=== PATIENT | female | born 1955 | race Hispanic/Latino ===

== ENCOUNTER 2017-03-04 10:10 | Emergency (ER) | payer OTHER ==
[2017-03-04 10:44] VITALS: RESP 16; TEMP 98.6; O2SAT 100; BMI 27.8
[2017-03-04] MEDS ORDERED: Sodium Chloride 0.9% 500 ML IV STA (11:50)
[2017-03-04] MEDS ORDERED: Atrop/Hyosc/Scopal/PB Elixir (120 ml) PO STA (11:52)
[2017-03-04] MEDS ORDERED: Alum-Mag Hydrox-Simethicone Susp (30 mL) PO STA (11:52)
[2017-03-04 12:24] LABS: ADD MANUAL DIFF? NO
[2017-03-04 12:28] LABS: BASO # 0.04 K/mm3 (0.0-2.0); BASO % 0.6 % (0.0-3.0); EOS # 0.1 (0.0-0.7); EOS % 2.1 % (1.5-5.0); GRAN # 3.95 (1.4-6.5); GRAN % 63.7 % (50.0-68.0); HEMATOCRIT 44.7 % (36.0-48.0); LYMPH # 1.8 (1.2-3.4); LYMPH % 28.4 % (22.0-35.0); MEAN CELL VOLUME 85.6 fL (80.0-105.0); MEAN CORPUSCULAR HEMOGLOBIN 29.7 pg (25.0-35.0); MEAN CORPUSCULAR HGB CONC 34.7 g/dl (31.0-37.0); MEAN PLATELET VOLUME 9.2 fl (7.0-11.0); MONO # 0.3 (0.1-0.6); MONO % 5.2 % (1.0-6.0); PLATELET COUNT 238 10^3/uL (120.0-450.0); RED CELL DISTRIBUTION WIDTH 14.9 % (11.5-14.5); WHITE BLOOD COUNT 6.2 10^3/ul (4.5-11.0)
--- NOTE | 2017-03-04 12:29 | RAD ---
HISTORY: abd pain COMPARISON: 08/16/2016 FINDINGS: LUNGS: No active pulmonary disease. PLEURA: No significant pleural effusion identified, no pneumothorax apparent. CARDIOVASCULAR: Normal. OSSEOUS STRUCTURES: No significant abnormalities. VISUALIZED UPPER ABDOMEN: Normal. OTHER FINDINGS: None. IMPRESSION: No active disease.
[2017-03-04 12:38] LABS: INR 0.95 (0.93-1.08); PARTIAL THROMBOPLASTIN TIME 27.5 Seconds (23.7-30.8)
[2017-03-04 13:37] LABS: ALB/GLOB RATIO 1.4 (1.1-1.8); ALKALINE PHOSPHATASE 64 U/L (38-133); BLOOD UREA NITROGEN 13 mg/dL (7-21); CALCIUM 9.1 mg/dL (8.4-10.5); CARBON DIOXIDE 26 mmol/L (21-33); CHLORIDE 106 mmol/L (98-107); GFR AFRICAN-AMERICAN > 60; GLUCOSE,RANDOM 92 mg/dL (70-110); POTASSIUM 4.4 mmol/L (3.6-5.0); SODIUM 140 mmol/L (132-148); TOTAL PROTEIN 7.4 g/dL (5.8-8.3)
[2017-03-04 13:39] LABS: ALT/SGPT 41 U/L (7-56); AST/SGOT 22 U/L (15-39); LIPASE 58 U/L (23-300)
--- NOTE | 2017-03-04 13:39 | US ---
HISTORY: RUQ pain COMPARISON: Comparison is made to the previous study dated 08/16/2016 TECHNIQUE: Sonographic evaluation of the abdomen. FINDINGS: LIVER: Measures 15.1 x 13.4 x 12.1 cm. Normal echogenicity of the liver parenchyma. No mass. Central intrahepatic bile duct dilatation. GALLBLADDER: Unremarkable. No gallstones. COMMON BILE DUCT: Measures 10.8 mm. No stones. No dilatation. PANCREAS: Unremarkable as visualized. No mass. The main pancreatic duct the measures 2.3 millimeter RIGHT KIDNEY: Measures 9.3 x 5.6 x 5.6cm. Normal echogenicity. No calculus, mass, or hydronephrosis. LEFT KIDNEY: Measures 10.5 x 5.7 x 5.6cm. Normal echogenicity. No calculus, mass, or hydronephrosis. SPLEEN: Normal in size and contour. No mass. AORTA: No aneurysmal dilatation. IVC: Unremarkable. OTHER FINDINGS: None. IMPRESSION: Dilated common bile duct of uncertain etiology. If clinically warranted further assessment by MRCP may be obtained. No evidence of cholelithiasis or cholecystitis.
--- NOTE | 2017-03-04 13:54 | ED PDOC ---
Arrival/HPI - General Chief Complaint: ENT Problem Time Seen by Provider: 03/04/17 10:47 Historian: Patient - History of Present Illness Narrative History of Present Illness (Text): 03/04/17 13:50 Patient with past medical history of hiatal hernia and gastritis, is also a smoker, complaining of a burning sensation to the epigastric area radiating to the center of her chest and into her throat for the past 7 days, states that she 's been taking ranitidine with no improvement of her symptoms. States that she already discontinued taking coffee and spicy food intake, she is also decreased amount of cigarettes she smokes with no improvement of her symptoms. Patient adds that in July of last year she had an endoscopy and a colonoscopy which diagnosed a hiatal hernia and gastritis. States that she has not followed up with her primary care doctor regarding her following symptoms because currently she does not have one. Otherwise: (-) SOB, (-) nausea / vomiting, (-) diarrhea, (-) fever, (-) urinary symptoms, (-) melena, (-) hematochezia. Has history of prior abdominal surgery - appendectomy. Patient also reports 10 day history of facial pain associated with runny nose and cough, adds that the facial pain is worse when bending forward and looking down. Otherwise: (-) headache, (-) recent travel, (-) sick contacts. Past Medical History - Provider Review Nursing Documentation Reviewed: Yes - Cardiac Hx Cardiac Disorders: No - Pulmonary Hx Respiratory Disorders: No - Neurological Hx Neurological Disorder: No - HEENT Hx HEENT Disorder: Yes Hx Glaucoma: Yes - Renal Hx Renal Disorder: Yes Other/Comment: ca of the bladder - Endocrine/Metabolic Hx Endocrine Disorders: No - Hematological/Oncological Hx Blood Disorders: No - Integumentary Hx Dermatological Disorder: No - Musculoskeletal/Rheumatological Hx Musculoskeletal Disorders: No - Gastrointestinal Hx Gastrointestinal Disorders: Yes Hx Gastritis: Yes Hx Gastroesophageal Reflux: Yes - Genitourinary/Gynecological Hx Genitourinary Disorders: Yes Hx Bladder Cancer: Yes - Psychiatric Hx Psychophysiologic Disorder: No Hx Substance Use: No - Surgical History Hx Appendectomy: Yes Hx Tonsillectomy: Yes Other/Comment: bladder surgery - Suicidal Assessment Feels Threatened In Home Enviroment: No Family/Social History - Physician Review Nursing Documentation Reviewed: Yes Family/Social History: No Known Family HX Smoking Status: Light Smoker < 10 Cigarettes Daily Hx Alcohol Use: No Hx Substance Use: No Allergies/Home Meds Allergies/Adverse Reactions: Allergies Penicillins Allergy (Verified 03/04/17 10:44) ANAPHYLAXIS Home Medications: Home Meds Medication Instructions Recorded Confirmed Ranitidine HCl [Zantac] 150 mg PO BID 03/04/17 03/04/17 Review of Systems - Review of Systems Constitutional: Normal. absent: Fatigue, Weight Change, Fevers ENT: Normal, Sinus Congestion. absent: Hearing Changes, Tinnitus, Sore Throat Respiratory: Normal, Cough. absent: SOB, Sputum Cardiovascular: Normal, Chest Pain. absent: Palpitations, Edema Gastrointestinal: Normal, Abdominal Pain, Appetite Changes. absent: Stool Changes, Constipation Genitourinary Female: Normal. absent: Dysuria, Frequency, Hematuria Musculoskeletal: Normal. absent: Arthralgias, Back Pain, Neck Pain Skin: Normal. absent: Rash, Pruritis, Skin Lesions, Laceration Neurological: Normal. absent: Headache, Dizziness, Focal Weakness Physical Exam - Physical Exam Narrative Physical Exam (Text): 03/04/17 13:54 GENERAL APPEARANCE: Patient is awake, alert, oriented x 3, in no acute distress. EYES: (-) conjunctival pallor, (-) scleral icterus, (-) conjunctival hemorrhage. ENMT: Mucous membranes moist. TMs: (-) erythema. (+) Tenderness to the frontal and maxillary sinuses. Airway patent: (-) stridor. Pharynx: (-) erythema, (-) exudate. NECK: (-) tenderness, (-) stiffness, (-) meningismus, (-) lymphadenopathy. CHEST AND RESPIRATORY: (-) accessory muscle use. Lungs: (-) rales, (-) rhonchi, (-) wheezes, (-) rub; breath sounds equal bilaterally. HEART AND CARDIOVASCULAR: (-) irregularity; (-) murmur, (-) gallop. ABDOMEN AND GI: (-) distention. Bowel sounds active; (-) tenderness, (-) guarding, (-) rebound, (-) palpable masses, (-) CVA tenderness. EXTREMITIES: (-) deformity, (-) edema, (+) distal pulses. NEURO AND PSYCH: Mental status as above; (-) focal findings. Vital Signs Temp Pulse Resp BP Pulse Ox 03/04/17 10:44 98.6 F 94 H 16 154/97 H 100 Medical Decision Making ED Course and Treatment: 03/04/17 13:55 62-year-old female presents with a history of hiatal hernia and gastritis, is also a smoker, complains of epigastric pain to consider GERD, as well as facial pain which is likely sinusitis. Plan: -- Labs -- IV fluids -- Urinalysis -- EKG -- CXR -- Pepcid and GI cocktail -- Reassess and disposition -- US ABD 03/04/17 14:41 On reevaluation, patient is sitting up in bed in no acute distress. Patient reports no abdominal pain, no chest pain, no shortness of breath at this time. On exam, abdomen remained soft with no tenderness, no guarding, no rebound. Lab results are within normal limits, troponin negative, EKG normal, chest x-ray normal, abdominal ultrasound shows dilated CBD with no stones. Diagnostic results discussed with the patient in great detail. Patient states that she is aware of the dilated CBD and that she had a recent MRCP done in September which was normal. Based on history, exam and diagnostic results plan will be for outpatient follow -up. Advised to continue ranitidine at this time, prescription for and antibiotic to treat his sinus infection provided to the patient. Patient states she fully agrees with and understands discharge instructions. States that she agrees with the plan and disposition. Verbalized and repeated discharge instructions and plan. I have given the patient opportunity to ask any additional questions. Follow up with referral physician in 1-2 days without fail. Advised to take medication as prescribed. Return to the emergency room at any time for any new or worsening symptoms. - Lab Interpretations Lab Results: 03/04/17 12:00 03/04/17 13:15 Lab Results 03/04/17 14:00: Urine Color Straw, Urine Appearance Clear, Urine pH 6.0, Ur Specific [place] 1.010, Urine Protein Negative, Urine Glucose (UA) Negative, Urine Ketones Negative, Urine Blood Small H, Urine Nitrate Negative, Urine Bilirubin Negative, Urine Urobilinogen 0.2, Ur Leukocyte Esterase Negative, Urine RBC 0 - 2, Urine WBC Negative, Ur Epithelial Cells 0 - 2, Urine Bacteria Trace 03/04/17 13:15: Sodium 140, Potassium 4.4, Chloride 106, Carbon Dioxide 26, Anion Gap 12, BUN 13, Creatinine 0.6, Est GFR ( Amer) > 60, Est GFR (Non- Af Amer) > 60, Random Glucose 92, Calcium 9.1, Total Bilirubin 1.0, AST 22, ALT 41, Alkaline Phosphatase 64, Troponin I < 0.01, Total Protein 7.4, Albumin 4.3, Globulin 3.1, Albumin/Globulin Ratio 1.4, Lipase 58 03/04/17 12:00: PT 10.3, INR 0.95, APTT 27.5 03/04/17 12:00: WBC 6.2 D, RBC 5.22, Hgb 15.5, Hct 44.7, MCV 85.6, MCH 29.7, MCHC 34.7, RDW 14.9 H, Plt Count 238, MPV 9.2, Gran % 63.7, Lymph % (Auto) 28.4 , [place] % (Auto) 5.2, Eos % (Auto) 2.1, Baso % (Auto) 0.6, Gran # 3.95, Lymph # 1.8, [place] # 0.3, Eos # 0.1, Baso # 0.04 I have reviewed the lab results: Yes Interpretation: All labs normal - RAD Interpretation Narrative RAD Interpretations (Text): 03/04/17 13:59 US abd : Dilated common bile duct of uncertain etiology, measures 10.8 mm, no stones, no dilatation. If clinically warranted further assessment by MRCP may be obtained. No evidence of cholelithiasis or cholecystitis. Dictated by Dr. Sumanth Gerber. Chest x-ray: no acute disease Radiology Orders: 03/04/17 11:50 CHEST PORTABLE [RAD] Stat ABDOMEN COMPLETE [US] Stat Postdoctoral Scholar: Radiologist - EKG Interpretation EKG Interpretation (Text): 03/04/17 14:49 EKG: NSR at 73 bpm, (-) acute ST changes, as read by PA. - Medication Orders Current Medication Orders: Discontinued Medications Al Hydrox/Mg Hydrox/Simethicone (Maalox Plus 30 Ml) 30 ml PO STAT STA Stop: 03/04/17 11:53 Last Admin: 03/04/17 12:28 Dose: 30 ml Belladonna/Phenobarbital ( Elixir) 5 ml PO STAT STA Stop: 03/04/17 11:53 Last Admin: 03/04/17 12:28 Dose: 5 ml Famotidine (Pepcid) 20 mg IVP STAT STA Stop: 03/04/17 11:51 Last Admin: 03/04/17 12:27 Dose: 20 mg Sodium Chloride (Sodium Chloride 0.9%) 500 mls @ 1,000 mls/hr IV .Q30M STA Stop: 03/04/17 12:19 Last Admin: 03/04/17 12:28 Dose: 1,000 mls/hr Lidocaine HCl (Lidocaine 2% Viscous) 15 ml PO STAT STA Stop: 03/04/17 11:53 Last Admin: 03/04/17 12:28 Dose: 15 ml Ondansetron HCl (Zofran Inj) 4 mg IVP STAT STA Stop: 03/04/17 11:51 Last Admin: 03/04/17 12:28 Dose: 4 mg - PA / BLOCK ENGRAVER / Resident Statement /DO has reviewed & agrees with the documentation as recorded. Disposition/Present on Arrival - Present on Arrival Any Indicators Present on Arrival: No History of DVT/PE: No History of Uncontrolled Diabetes: No Urinary Catheter: No History of Decub. Ulcer: No History Surgical Site Infection Following: None - Disposition Have Diagnosis and Disposition been Completed?: Yes Diagnosis: Abdominal pain, History of gastritis, GERD (gastroesophageal reflux disease), Sinusitis Disposition: HOME/ ROUTINE Disposition Time: 14:30 Patient Plan: Discharge Patient Problems: Current Active Problems Problem Status Onset Abdominal pain Acute History of gastritis Acute GERD (gastroesophageal reflux disease) Acute Sinusitis Acute Condition: IMPROVED Discharge Instructions (ExitCare): Sinusitis (ED), Diet for Ulcers and Gastritis (ED), Gastroesophageal Reflux Disease (ED), Acute Abdominal Pain (ED) Print Language: TAJIK Additional Instructions: Thank you for letting us take care of you today. You were treated for abdominal pain, history of gastritis, likely GERD, sinusitis. The emergency medical care you received today was directed at your acute symptoms. If you were prescribed any medication, please fill it and take as directed. It may take several days for your symptoms to resolve. Return to the Emergency Department if your symptoms worsen, do not improve, or if you have any other problems. Please contact your doctor in 2 days for re-evaluation and follow up. Bring any paperwork you were given at discharge with you along with any medications you are taking to your follow up visit. Our treatment cannot replace ongoing medical care by a primary care provider (PCP) outside of the emergency department. Thank you for allowing the [facility] team to be part of your care today. Prescriptions: Atropine/Hyoscyamine [] 1 tab PO TID PRN #20 tab PRN Reason: Dyspepsia Clindamycin [Cleocin] 300 mg PO TID #30 cap Referrals: PCP,NO [Primary Care Provider] - Follow up with primary
[2017-03-04 13:55] LABS: TROPONIN I < 0.01 ng/mL
--- NOTE | 2017-03-04 14:04 | CARD ---
APPROVED REPORT EKG Measurement Heart [id number] <Conclusion> Normal sinus rhythm Normal ECG
[2017-03-04 14:18] LABS: URINE BILIRUBIN NEGATIVE (NEGATIVE); URINE BLOOD SMALL (NEGATIVE); URINE GLUCOSE (UA) NEGATIVE (NEGATIVE); URINE KETONE NEGATIVE (NEGATIVE); URINE LEUKOCYTE ESTERASE NEGATIVE Leu/uL (NEGATIVE); URINE PROTEIN NEGATIVE mg/dL (<30 mg/dL); URINE UROBILINOGEN 0.2 E.U./dL (<1 E.U./dL)
[2017-03-04 14:19] LABS: URINE APPEARANCE CLEAR (CLEAR); URINE COLOR STRAW (YELLOW)
[2017-03-04 14:31] LABS: URINE BACTERIA TRACE (NEG); URINE EPITHELIAL CELLS 0 - 2 /hpf (0-5); URINE RBC 0 - 2 /hpf (0-2); URINE WBC NEGATIVE /hpf (0-6)
[2017-03-04 15:05] VITALS: BP 148/89; PULSE 89
== END 2017-03-04 15:04 | disposition home or self-care (01) ==
LOC: ED 10:10
DX: K21.9 Gastro-esophageal reflux disease without esophagitis (principal); K29.70 Gastritis, unspecified, without bleeding; J32.9 Chronic sinusitis, unspecified; Z72.0 Tobacco use
CPT/HCPCS: 71010; 76700; 80053; 81001; 83690; 84484; 85025; 85610; 85730; 87086; 93005; 96374; 96375; 99283; J2405; J7040